=== PATIENT | female | born 1950 ===

== ENCOUNTER 2017-05-19 10:55 | Emergency (ER) | payer MEDICARE, OTHER ==
[2017-05-19 10:56] VITALS: BMI 29.5
[2017-05-19 11:12] VITALS: TEMP 97.8
--- NOTE | 2017-05-19 12:25 | C.PDOC ---
History Of Present Illness 66 year old female presents to the ED for evaluation of right elbow pain which began 2 months ago. Patient reports pain is localized over the medial aspect of her right elbow and is worse with movement. Patient denies known trauma/injuries , skin changes, or deformity of the arm. Time Seen by Provider: 05/19/17 11:35 Chief Complaint (Nursing): Upper Extremity Problem/Injury History Per: Patient History/Exam Limitations: no limitations Onset/Duration Of Symptoms: Intermittent Episodes (2 months ) Current Symptoms Are (Timing): Still Present Quality: "Pain" Exacerbating Factor(s): Movement Additional History Per: Patient Past Medical History Reviewed: Historical Data, Nursing Documentation, Vital Signs Vital Signs: Last Vital Signs Temp 97.8 F 05/19/17 11:07 Pulse 72 05/19/17 12:36 Resp 16 05/19/17 12:36 BP 140/85 05/19/17 12:36 Pulse Ox 99 05/19/17 12:52 - Medical History PMH: Anxiety, Arthritis, CVA, Depression, Diabetes, Gastritis, HTN, Hypercholesterolemia, Hyperthyroidism, Kidney Stones, Chronic Kidney Disease Denies: Hepatitis, Sexually Transmitted Disease Surgical History: No Surg Hx Family History: States: Unknown Family Hx - Social History Hx Tobacco Use: No Hx Alcohol Use: No Hx Substance Use: No - Immunization History Hx Tetanus Toxoid Vaccination: No Hx Influenza Vaccination: No Hx Pneumococcal Vaccination: No Review Of Systems Musculoskeletal: Positive for: Other (right elbow pain ) Skin: Negative for: Rash, Lesions, Jaundice, Bruising Physical Exam - Physical Exam Appears: Non-toxic, No Acute Distress Skin: Normal Color, Warm, Dry Extremity: Normal ROM, Tenderness (over medial aspect of right elbow on palpation ), Capillary Refill (less than 2 seconds ), No Deformity, No Swelling Neurological/Psych: Oriented x3, Normal Speech, Normal Cognition, Normal Motor, Normal Sensation ED Course And Treatment O2 Sat by Pulse Oximetry: 99 (on RA) Pulse Ox Interpretation: Normal - Other Rad Right elbow X-Ray: Interpreted by Me, Viewed By Me Interpretation: (-) acute fx or dislocation Progress Note: Right elbow XR ordered and reviewed. Ultram PO administered. On re-evaluation, pt is afebrile, hemodynamicaly stable. NOn-toxic. ENT: no acute findings. RUE: exam c/w elbow tendonitis. FAROM, no neurovascular deficits, n oskin changes. Neurologicaly intact. Right elbow xray review, normal study. Maged wrap applied to Right elbow. Pt advised. ref. to f/u with PMD, Ortho in 2-3 days for re-eavl. retur if any new changes. Disposition Counseled Patient/Family Regarding: Studies Performed, Diagnosis, Need For Followup, Rx Given - Disposition Referrals: [facility] [Outside] Disposition: HOME/ ROUTINE Disposition Time: 12:04 Condition: STABLE Additional Instructions: MAGED WRAP TO RIGHT ELBOW TAKE MEDICATION PRESCRIBED FOLLOW UP WITH PMD, ORTHOPEDIST IN 2-3 DAYS FOR RE-EVALUATION. RETURN TO ED IF ANY WORSENING OR NEW CHANGES. Prescriptions: Ibuprofen [Motrin Tab] 600 mg PO Q6 #20 tab traMADol [Ultram] 50 mg PO TID #7 tab Instructions: Elbow Sprain (ED), Tendinitis (ED) Forms: [employer] (Welsh) - Clinical Impression Clinical Impression: Elbow tendonitis - PA / ADVANCED CLINICAL SPECIALIST / Resident Statement MD/DO has reviewed & agrees with the documentation as recorded. - Scribe Statement The provider has reviewed the documentation as recorded by the Scribe (Lisa Goodman) All medical record entries made by the Scribe were at my direction and personally dictated by me. I have reviewed the chart and agree that the record accurately reflects my personal performance of the history, physical exam, medical decision making, and the department course for this patient. I have also personally directed, reviewed, and agree with the discharge instructions and disposition.
[2017-05-19 12:38] VITALS: BP 140/85; PULSE 72; RESP 16
[2017-05-19 12:52] VITALS: O2SAT 99
--- NOTE | 2017-05-19 14:12 | RAD ---
PROCEDURE: Radiographs of the right elbow. HISTORY: pain COMPARISON: No prior. FINDINGS: BONES: Posterior olecranon spurring No fracture. JOINTS: Osteoarthrosis. Elbow joint most notably SOFT TISSUES: Normal. JOINT EFFUSION: None. OTHER FINDINGS: None. IMPRESSION: No fracture or lytic lesion. Posterior elbow joint Hypertrophic arthrosis
== END 2017-05-19 12:36 | disposition home or self-care (01) ==
LOC: C.ER 10:55
DX: M77.8 Other enthesopathies, not elsewhere classified (principal)

== ENCOUNTER 2017-06-22 11:22 | Emergency (ER) | payer MEDICARE, OTHER ==
[2017-06-22 11:22] VITALS: BMI 29.5
[2017-06-22 11:54] VITALS: RESP 18
[2017-06-22 13:27] LABS: URINE BACTERIA RARE (<OCC); URINE BILIRUBIN NEGATIVE (NEGATIVE); URINE BLOOD 1+ (NEGATIVE); URINE CLARITY Clear (Clear); URINE COLOR Straw (YELLOW); URINE GLUCOSE (UA) NORMAL (Normal); URINE LEUKOCYTE ESTERASE TRACE Leu/uL (Negative); URINE PROTEIN NEGATIVE (NEGATIVE); URINE UROBILINOGEN NORMAL mg/dL (0.2-1.0)
[2017-06-22] MEDS ORDERED: Tmp-Smz 800 mg-160 mg DS Tab PO STA (14:11)
--- NOTE | 2017-06-22 14:14 | C.PDOC ---
History Of Present Illness 66 year old female presents to the ED c/o lower back pain that worsens with movement for the past 6 months. Patient also stated she developed dysuria and urinary symptoms. Patient had not taken medication for her pain. Patient denies nausea, vomit, diarrhea, saddle anesthesia, bowel incontinence. Time Seen by Provider: 06/22/17 11:46 Chief Complaint (Nursing): Abdominal Pain History Per: Patient History/Exam Limitations: no limitations Onset/Duration Of Symptoms: Gradual Current Symptoms Are (Timing): Gone Location Of Pain/Discomfort: Diffuse Radiation Of Pain To:: None Quality Of Discomfort: "Pain" Associated Symptoms: Urinary Symptoms Exacerbating Factors: None Alleviating Factors: None Recent travel outside of the [place]: No Additional History Per: Patient Abnormal Vaginal Bleeding: No Past Medical History Reviewed: Historical Data, Nursing Documentation, Vital Signs Vital Signs: Last Vital Signs Temp 97.6 F 06/22/17 14:25 Pulse 67 06/22/17 14:25 Resp 18 06/22/17 14:25 BP 114/71 06/22/17 14:25 Pulse Ox 95 06/22/17 14:32 - Medical History PMH: Anxiety, Arthritis, CVA, Depression, Diabetes, Gastritis, HTN, Hypercholesterolemia, Hyperthyroidism, Kidney Stones, Chronic Kidney Disease Denies: Hepatitis, Sexually Transmitted Disease Surgical History: No Surg Hx Family History: States: Unknown Family Hx - Social History Hx Tobacco Use: No Hx Alcohol Use: No Hx Substance Use: No - Immunization History Hx Tetanus Toxoid Vaccination: No Hx Influenza Vaccination: No Hx Pneumococcal Vaccination: No Review Of Systems Constitutional: Negative for: Fever, Chills Cardiovascular: Negative for: Chest Pain Respiratory: Negative for: Cough, Shortness of Breath Gastrointestinal: Negative for: Nausea, Vomiting, Abdominal Pain Genitourinary: Positive for: Dysuria. Negative for: Incontinence, Hematuria Musculoskeletal: Positive for: Back Pain Skin: Negative for: Rash Neurological: Negative for: Weakness, Numbness Physical Exam - Physical Exam Appears: Non-toxic, No Acute Distress Skin: Normal Color, Warm, Dry Head: Atraumatic, Normacephalic Eye(s): bilateral: Normal Inspection Nose: No Discharge, No Deformity Oral Mucosa: Moist Neck: Normal ROM, Supple Cardiovascular: Rhythm Regular Respiratory: Normal Breath Sounds Gastrointestinal/Abdominal: Soft, No Tenderness, No Mass, No Guarding, No Rebound Back: No CVA Tenderness, No Vertebral Tenderness, Paraspinal Tenderness ( Paralumbar tenderness), No Straight Leg Raising, Other (Neurovascular intact) Extremity: Normal ROM, No Tenderness, No Swelling Neurological/Psych: Oriented x3, Normal Speech, Normal Cognition, Normal Motor, Normal Sensation Gait: Steady ED Course And Treatment O2 Sat by Pulse Oximetry: 95 (On RA) Pulse Ox Interpretation: Normal Medical Decision Making Medical Decision Making: Assessment: Lower back pain, UTI Plan: * LS spine X-Ray * Motrin 600 mg PO * Zofran 4 mg PO * Bactrim 1 tab PO * UA Disposition Counseled Patient/Family Regarding: Studies Performed, Diagnosis, Need For Followup, Rx Given - Disposition Referrals: [facility] [Outside] [facility] [Outside] Disposition: HOME/ ROUTINE Disposition Time: 14:12 Condition: STABLE Additional Instructions: follow up with your doctor in 2 days call to make an appointment take medications as prescribed return to ER if symptoms worsens or progress Prescriptions: Naproxen [Naprosyn] 500 mg PO BID PRN #16 tab PRN Reason: Pain, Moderate (4-7) Sulfamethoxazole/Trimethoprim [Bactrim DS 800 mg-160 mg] 1 tab PO BID #14 tab Instructions: Urinary Tract Infections in Adults, Low Back Pain in Adults Forms: Gen Discharge Inst Cambodian, [employer] (Cambodian) Print Language: MAURITANIAN - Clinical Impression Clinical Impression: UTI (urinary tract infection), Back pain - Scribe Statement The provider has reviewed the documentation as recorded by the Scribe Chapo Navarro All medical record entries made by the Scribe were at my direction and personally dictated by me. I have reviewed the chart and agree that the record accurately reflects my personal performance of the history, physical exam, medical decision making, and the department course for this patient. I have also personally directed, reviewed, and agree with the discharge instructions and disposition.
[2017-06-22] MEDS ORDERED: Tmp-Smz 800 mg-160 mg DS Tab ONE (14:22)
[2017-06-22 14:26] VITALS: BP 114/71; PULSE 67; TEMP 97.6
[2017-06-22 14:28] VITALS: O2SAT 95
--- NOTE | 2017-06-22 15:25 | RAD ---
PROCEDURE: Radiographs of the Lumbar Spine. HISTORY: back pain COMPARISON: CT abdomen and pelvis with IV contrast performed 02/25/16 FINDINGS: BONES: Scoliosis. Osseous demineralization limits evaluation for acute fracture lines. Multilevel degenerative changes. No listhesis. No acute displaced fracture identified. DISC SPACES: Unremarkable. OTHER FINDINGS: None. IMPRESSION: Scoliosis. Osseous demineralization. Multilevel degenerative changes.
== END 2017-06-22 14:35 | disposition home or self-care (01) ==
LOC: C.ER 11:22
DX: N39.0 Urinary tract infection, site not specified (principal); M54.5 Low back pain; I12.9 Hypertensive chronic kidney disease with stage 1 through stage 4 chronic kidney disease, or unspecified chronic kidney disease; N18.9 Chronic kidney disease, unspecified; E78.00 Pure hypercholesterolemia, unspecified

== ENCOUNTER 2017-10-12 11:26 | Day surgery (SDC) | payer OTHER ==
[2017-10-12 13:19] LABS: HEMOGLOBIN 10.9 g/dL (11.0-16.0); MEAN CELL VOLUME 81.9 fL (81.0-99.0); MEAN CORPUSCULAR HEMOGLOBIN 27.7 pg (27.0-31.0); MEAN CORPUSCULAR HGB CONC 33.8 g/dL (33.0-37.0); MEAN PLATELET VOLUME 10.7 fL (7.2-11.7); RBC 3.94 Mil/uL (3.80-5.20); RED CELL DISTRIBUTION WIDTH 14.4 % (11.5-14.5); WHITE BLOOD COUNT 7.3 K/uL (4.8-10.8)
[2017-10-12 13:20] LABS: CALCIUM 9.4 mg/dl (8.6-10.4)
[2017-10-12] MEDS ORDERED: HYDROmorphone 0.5 mg/0.5 ml ISec IVP PRN ×2 (14:26→16:00)
[2017-10-12] MEDS ORDERED: Propofol 10 mg/ml Inj (20 ML) ONE (14:40)
[2017-10-12] MEDS ORDERED: Gentamicin 80 mg in 0.9% NS 80 MG/100 ML BAG IVPB ONE (15:00)
[2017-10-12] MEDS ORDERED: HYDROmorphone 0.5 mg/0.5 ml ISec ONE (15:28)
[2017-10-12 16:50] VITALS: BP 121/53; PULSE 72; RESP 20; TEMP 97.5; O2SAT 100
--- NOTE | 2017-10-13 02:49 | OP ---
PROCEDURE DATE: 10/12/2017 UROLOGY OPERATIVE REPORT PREOPERATIVE DIAGNOSES: Voiding dysfunction, decreased flow of stream, abdominal pain, flank pain, hematuria. POSTOPERATIVE DIAGNOSES: Voiding dysfunction, decreased flow of stream, abdominal pain, flank pain, hematuria. PROCEDURES: Exam under anesthesia; cystoscopy, no biopsies, no retrogrades. The patient tolerated the procedure without complication. BLOOD LOSS: Less than 10 mL. COMPLICATIONS: There were no complications. UROLOGY OPERATIVE FINDINGS: Essentially normal bladder mucosa. No abnormalities, no hematuria noted. No pelvic or rectal masses, mild cystocele. DESCRIPTION OF PROCEDURE: After obtaining informed consent, the patient was placed on the table. Routine monitor was placed. Time-out was called to confirm the patient and positioning. The procedure continued with the cystoscope into right urethra. Time-out was called to confirm the patient and positioning. urethra, no bladder abnormality detected. Bladder was inspected. It was length. No biopsy was taken. No pelvic or rectal masses on exam under anesthesia. Mild cystocele noted. The patient tolerated the procedure without complications. We will discuss with the patient various options. He has had multiple other workups including upper tract imaging. In the past, we have discussed repeat of some of these workups here, but no obvious abnormalities detected, but again, the patient is voicing concerns, and we will have to continue to follow. Porter Benson MD
--- NOTE | 2017-10-13 07:20 | HP ---
UROLOGY ADMISSION HISTORY AND PHYSICAL REASON FOR ADMISSION: Workup of hematuria, abdominal pain, flank pain. Here for a cystoscopy. The patient wanted to have it done in the office. So, she is being here done now with a little sedation anesthesia. PAST MEDICAL AND SURGICAL HISTORY: As listed in the chart. Otherwise unremarkable. REVIEW OF SYSTEMS: As listed above, noncontributory. No weight loss, chest pain, shortness of breath, or leg pain. Just with generalized weakness and feeling of pain and discomfort, particularly in her bladder, no back or kidneys. MEDICATIONS: See the chart. ALLERGIES: SEE THE CHART. PHYSICAL EXAMINATION: GENERAL: A well-nourished female, in no apparent distress. She has a little grimace on her face. VITAL SIGNS: Within normal limits. LUNGS: Clear. HEART: Normal S1 and S2. ABDOMEN: Overall soft. Nontender. No flank mass. PELVIC EXAM: Shows mild cystocele, but no pelvic or rectal mass. LABORATORY DATA: See chart. DIAGNOSES: Voiding dysfunction, hematuria, abdominal pain, flank pain, weight gain. ASSESSMENT AND PLAN: In summary, this patient is a very pleasant lady with no workup previously. We are going to do more workup now. Including cystoscopy with anesthesia. we will plan for biopsy. We did discuss x-rays. We did discuss retrograde pyelogram. We discussed a lot of problems with the patient. Discussed second option with surgeon, teleprinter installer. There are multiple medical issues. From urology standpoint, the plan is as follows: 1. Antibiotic prophylaxis. 2. Cystoscopy and then further plans will follow. We will discuss other options with the patient. ADDENDUM: See the operative report. There is no lesion. No biopsy is taken. Basically, relatively normal cystoscope. See the operative report. Porter Benson MD
--- NOTE | 2017-10-13 23:42 | CARD ---
APPROVED REPORT EKG Measurement Heart [id number] <Conclusion> Normal sinus rhythm Moderate voltage criteria for LVH, may be normal variant Borderline ECG
== END 2017-10-12 17:10 | disposition home or self-care (01) ==
LOC: C.SDS 11:26
PROVIDERS: ATTEND Urology
DX: R31.9 Hematuria, unspecified (principal); R39.12 Poor urinary stream; R10.9 Unspecified abdominal pain
CPT/HCPCS: 36415; 52000; 80048; 85027; 93005; J1580